=== PATIENT | male | born 1970 | race African-American/Black ===

== ENCOUNTER 2016-08-31 20:04 | Emergency (ER) ==
[2016-08-31 20:19] VITALS: BP 155/94
== END 2016-08-31 21:57 | disposition left against medical advice (07) ==
LOC: ER 20:04
DX: Z53.21 Procedure and treatment not carried out due to patient leaving prior to being seen by health care provider (principal)

== ENCOUNTER 2016-09-06 18:41 | Emergency (ER) | payer SELFPAY ==
--- NOTE | 2016-09-06 19:13 | ER Document Report ---
ED Medical Screen (RME) - General Chief Complaint: Overdose Stated Complaint: POSSIBLE OVERDOSE Time Seen by Provider: 09/06/16 19:11 Mode of Arrival: Ambulatory Information source: Patient Notes: Is a 46-year-old male with a history of schizophrenia who presents to the emergency room with depression, he states he took his 's Adderall (7 pills) 16 hours ago. The patient states she started getting left upper extremity numbness 3-4 hours ago and then started having chest pain 2-3 hours ago. He states he is suicidal. Past Medical History Renal/ Medical History: Denies: Hx Peritoneal Dialysis Physical Exam - Vital signs Vitals: Temp Pulse Resp BP Pulse Ox 98.1 F 128 H 15 171/97 H 100 09/06/16 18:45 09/06/16 18:45 09/06/16 18:45 09/06/16 18:45 09/06/16 18:45 Course - Vital Signs Vital signs: Temp Pulse Resp BP Pulse Ox 98.1 F 128 H 15 171/97 H 100 09/06/16 18:45 09/06/16 18:45 09/06/16 18:45 09/06/16 18:45 09/06/16 18:45
[2016-09-06 19:49] LABS: ABSOLUTE BASOPHILS # (AUTO) 0.1 10^3/uL (0.0-0.2); ABSOLUTE EOSINOPHILS # (AUTO) 0.1 10^3/uL (0.0-0.6); ABSOLUTE LYMPHOCYTES (AUTO) 2.5 10^3/uL (0.5-4.7); ABSOLUTE MONOCYTES (AUTO) 0.7 10^3/uL (0.1-1.4); BASOPHILS % (AUTO) 0.7 % (0-2); EOSINOPHILS % (AUTO) 0.8 % (0-6); HEMATOCRIT 42.3 % (37.9-51.0); HEMOGLOBIN 14.4 g/dL (13.5-17.0); HGB HCT DIFFERENCE 0.9; LYMPHOCYTES % (AUTO) 23.9 % (13-45); MEAN CORPUSCULAR HEMOGLOBIN 31.5 pg (27.0-33.4); MEAN CORPUSCULAR VOLUME 93 fl (80-97); MONOCYTES % (AUTO) 6.9 % (3-13); RED BLOOD COUNT 4.57 10^6/uL (4.35-5.55); RED CELL DISTRIBUTION WIDTH 13.4 % (11.5-14.0); SEGMENTED NEUTROPHILS % (AUTO) 67.7 % (42-78); WHITE BLOOD COUNT 10.4 10^3/uL (4.0-10.5)
--- NOTE | 2016-09-06 19:56 | ER Document Report ---
ED Psych Disorder / Suicide - General Mode of Arrival: Ambulatory Information source: Patient - HPI Patient complains to provider of: Overdose, Suicidal ideation Onset: Other - Refer to HPI notes <ISACCEBONY - Last Filed: 09/06/16 21:16> <WALKER GARCIA - Last Filed: 09/06/16 23:42> - General Chief Complaint: Overdose Stated Complaint: POSSIBLE OVERDOSE Time Seen by Provider: 09/06/16 19:11 Notes: Patient is a 46-year-old male with a history of schizophrenia who presents to the emergency room with depression and possible overdose. Patient states he took his 's Adderall (7 pills) 16 hours ago so that he could "feel better." Patient states he took 3 extended release and 4 immediately release Adderall. Patient states he started getting some left upper extremity numbness about 3-4 hours prior to arrival as well as chest pain onset 2-3 hours prior to arrival. Patient describes his pain as "tight" and states his pain radiates from his left shoulder and down into his fingertips. Patient also has some shortness of breath. Patient states he is suicidal, anxious, and depressed. Patient states he has been having marital problems and work stress. Patient states during triage "If I would have had my shotgun at home I would have taken it and blown my brains out." Patient also states "I feel so angry inside. I didn't want to admit it but I do feel suicidal, I feel like the garcia are closing in inside me. " Patient moved here from [place] 2 years ago and states he got a DUI when he got here and was in [facility] x[facility] weeks. Patient recently got out of the [facility]. Patient smokes marijuana, drinks beer and liquor but states he has been "easing off the liquor." Patient drinks 3-4 times a week and his last drink was about 4 days ago; patient denies any current withdrawal symptoms or any history of EtOH withdrawals. Patient has a history of PTSD, manic depression, and schizophrenia. Patient has not had any medications for about 4 years. Patient states he has been hearing voices telling him to hurt himself. Patient states he doesn't want to be held in this facility for 72 hours because he has to go to work. Patient was seen here a few days ago for an anxiety attack, which he states he gets frequently; patient left after getting an EKG. Patient states he does have some mild chest tightness which he relates to his anxiety. PCP-none (EBONY DEXTER) Past Medical History - General Information source: Patient - Social History Smoking Status: Current Every Day Smoker Chew tobacco use (# tins/day): No Frequency of alcohol use: Heavy Drug Abuse: Marijuana Family History: None Patient has suicidal ideation: Yes Patient has homicidal ideation: No Psychiatric Medical History: Reports: Hx Depression - manic, Hx Post Traumatic Stress Disorder, Hx Schizophrenia <EBONY DEXTER - Last Filed: 09/06/16 21:16> Review of Systems - Review of Systems Constitutional: No symptoms reported EENT: No symptoms reported Cardiovascular: No symptoms reported Respiratory: No symptoms reported Gastrointestinal: No symptoms reported Genitourinary: No symptoms reported Male Genitourinary: No symptoms reported Musculoskeletal: No symptoms reported Skin: No symptoms reported Hematologic/Lymphatic: No symptoms reported Neurological/Psychological: See HPI, Depression, Suicidal ideation, Other - overdose -: Yes All other systems reviewed and negative <EBONY DEXTER - Last Filed: 09/06/16 21:16> Physical Exam - Vital signs Interpretation: Hypertensive, Tachycardic <EBONY DEXTER - Last Filed: 09/06/16 21:16> <WALKER GARCIA - Last Filed: 09/06/16 23:42> - Vital signs Vitals: Temp Pulse Resp BP Pulse Ox 98.1 F 128 H 15 171/97 H 100 09/06/16 18:45 09/06/16 18:45 09/06/16 18:45 09/06/16 18:45 09/06/16 18:45 - Notes Notes: GENERAL: Alert, interacts well. No acute distress. HEAD: Normocephalic, atraumatic. EYES: Appear normal. Pupils equal, round, and reactive to light. ENT: Moist mucus membranes, tongue midline. NECK: Full range of motion. Supple. Trachea midline. LUNGS: Clear to auscultation bilaterally, no wheezes, rales, or rhonchi. No respiratory distress. HEART: Regular rate and rhythm. No murmurs, gallops, or rubs. ABDOMEN: Soft, non-tender. Non-distended. Normal bowel sounds. EXTREMITIES: Moves all 4 extremities spontaneously. Normal strength. No edema. NEUROLOGICAL: Alert and oriented x3. Normal speech. No focal neurological deficits. GSC 15. PSYCH: Tearful, depressed. SKIN: Warm, dry, normal turgor. No rashes or lesions noted. (EBONY DEXTER) Course - Laboratory Result Diagrams: 09/06/16 19:30 09/06/16 19:30 <EBONY DEXTER - Last Filed: 09/06/16 21:16> - Laboratory Result Diagrams: 09/06/16 19:30 09/06/16 19:30 <WALKER GARCIA - Last Filed: 09/06/16 23:42> - Re-evaluation Re-evalutation: 09/06/16 20:40 Patient presents emergency department with a chief complaint of major depression suicidal ideation and took too much Adderall. Patient initially complains of some discomfort in the chest which he relates to anxiety. Says that he was here in the ER 2 days ago for anxiety causing some chest discomfort and left after they did an EKG. Says occasionally his arm goes numb as well. Describes this following one hour after taking 7 time-released Adderall tablets that belonged to his . He says he has a history of depression PTSD schizophrenia bipolar disorder but has not taken medicines in 4 years admits to doing this as a suicidal attempt hearing voices and wanting to harm himself. States he drinks alcohol about 3-4 times a week but has not had a drink in 2 days. Denies any withdrawal type symptoms history of alcohol withdrawal or seizures. Denies any other illicit substance abuse other than marijuana. On examination. Patient is very tearful GCS of 15 slightly tachycardic on examination which is expected with the amphetamines. EKG is stable. Acute laboratory evaluation shows a mildly elevated CK and CK-MB IV fluids were given for this. Tox screen positive for amphetamines and marijuana with a negative troponin. At this time patient is given IV fluids placed on IVC. And will be kept for further assessment evaluation from the psychiatric team in the a.m. patient vehemently denies any chest pain or shortness of breath currently and is scheduled to have a repeat troponin. 09/06/16 20:43 (WALKER GARCIA) - Vital Signs Vital signs: Temp Pulse Resp BP Pulse Ox 98.1 F 128 H 22 H 128/82 H 99 09/06/16 18:45 09/06/16 18:45 09/06/16 22:00 09/06/16 20:03 09/06/16 22:00 - Laboratory Laboratory results interpreted by me: 09/06/16 09/06/16 09/06/16 19:30 19:30 19:30 Creatine Kinase 1281 H CK-MB (CK-2) 8.47 H Urine Ketones 20 H Acetaminophen < 10 L - EKG Interpretation by Me Additional EKG results interpreted by me: 09/06/16 20:42 EKG interpreted by myself to reveal sinus rhythm at [address] segment elevation or depression (WALKER GARCIA) Critical Care Note - Critical Care Note Total time excluding time spent on procedures (mins): 65 <WALKER GARCIA - Last Filed: 09/06/16 23:42> Discharge <EBONY DEXTER - Last Filed: 09/06/16 21:16> <WALKER GARCIA - Last Filed: 09/06/16 23:42> - Discharge Clinical Impression: Suicidal ideation, History of schizophrenia, Elevated CK Amphetamine overdose Qualifiers: Encounter type: initial encounter Injury intent: intentional self-harm Qualified Code(s): T43.622A - Poisoning by amphetamines, intentional self-harm, initial encounter Condition: Stable Disposition: PSYCH HOSP/UNIT Scribe Attestation: 09/06/16 20:40 I personally performed the services described in the documentation reviewed the documentation recorded by my scribe in my presence and it accurately and completely records my words and actions (WALKER GARCIA) Scribe Documentation - Scribe Written by Nia:: Nia Zarco, 09/06/16 20:04 acting as scribe for :: Avinash <EBONY DEXTER - Last Filed: 09/06/16 21:16>
[2016-09-06 19:59] LABS: APPEARANCE,URINE CLEAR; BILIRUBIN,URINE NEGATIVE (NEGATIVE); GLUCOSE, URINE NEGATIVE (NEGATIVE); KETONES,URINE 20 mg/dL (NEGATIVE); LEUKOCYTE ESTERASE,URINE NEGATIVE (NEGATIVE); NITRITE,URINE NEGATIVE (NEGATIVE); PROTEIN,URINE NEGATIVE (NEGATIVE); URINE SPECIFIC GRAVITY 1.013; UROBILINOGEN,URINE NEGATIVE mg/dL (<2.0)
--- NOTE | 2016-09-06 20:02 | RADIOLOGY REPORT (SQ) ---
EXAM DESCRIPTION: CT HEAD WITHOUT COMPLETED DATE/TIME: 09/06/2016 7:48 pm REASON FOR STUDY: LUE numbness COMPARISON: None. TECHNIQUE: Axial images acquired through the brain without intravenous contrast. Images reviewed wi th bone, brain and subdural windows. Images stored on PACS. All CT scanners at this facility use dose modulation, iterative reconstruction, and/or weight based d osing when appropriate to reduce radiation dose to as low as reasonably achievable (ALARA). [facility]: Dose Right [facility]: CareDose [facility]: Dose Right [facility]: Teradose 4D [facility]: Smart Technologies RADIATION DOSE: Up-to-date CT equipment and radiation dose reduction techniques were employed. CTDIv ol: 64.6 mGy. DLP: 1292 mGy-cm. mGy. LIMITATIONS: None. FINDINGS: VENTRICLES: Normal size and contour. CEREBRUM: No masses. No hemorrhage. No midline shift. Normal decker/white matter differentiation. N o evidence for acute infarction. CEREBELLUM: No masses. No hemorrhage. No alteration of density. No evidence for acute infarction. EXTRAAXIAL SPACES: No fluid collections. No masses. ORBITS AND GLOBE: No intra- or extraconal masses. Normal contour of globe without masses. CALVARIUM: No fracture. PARANASAL SINUSES: No fluid or mucosal thickening. SOFT TISSUES: No mass or hematoma. OTHER: No other significant finding. IMPRESSION: NORMAL BRAIN CT WITHOUT CONTRAST. TECHNICAL DOCUMENTATION: JOB ID: [id number] Quality ID # [id number]: Final reports with documentation of one or more dose reduction techniques (e.g., Au tomated exposure control, adjustment of the mA and/or kV according to patient size, use of iterative reconstruction technique) 2010 [employer]- All Rights Reserved
[2016-09-06 20:07] LABS: ALANINE AMINOTRANSFERASE 46 U/L (21-72); ALBUMIN 4.7 g/dL (3.5-5.0); ALKALINE PHOSPHATASE 89 U/L (38-126); ANION GAP 15 (5-19); ASPARTATE AMINO TRANSFERASE 59 U/L (17-59); BILIRUBIN,DIRECT 0.3 mg/dL (0.0-0.4); BILIRUBIN,TOTAL 0.5 mg/dL (0.2-1.3); BLOOD UREA NITROGEN 15 mg/dL (7-20); CALCIUM 9.7 mg/dL (8.4-10.2); CARBON DIOXIDE 25 mmol/L (22-30); CHLORIDE 102 mmol/L (98-107); CREATINE KINASE 1281 U/L (55-170); CREATININE RESULT 0.91 mg/dL (0.52-1.25); GLUCOSE 88 mg/dL (75-110); POTASSIUM 3.8 mmol/L (3.6-5.0); SODIUM 141.7 mmol/L (137-145); TOTAL PROTEIN 8.2 g/dL (6.3-8.2)
[2016-09-06 20:09] LABS: URINE BARBITURATES SCREEN NEGATIVE; URINE METHADONE SCREEN NEGATIVE; URINE OPIATES LOW NEGATIVE; URINE PHENCYCLIDINE SCREEN NEGATIVE
[2016-09-06 20:14] LABS: ALCOHOL < 10 mg/dL (NONE DETECTED)
[2016-09-06 20:23] LABS: CREATINE KINASE MB 8.47 ng/mL (<4.55)
[2016-09-06 20:25] LABS: TROPONIN I < 0.012 ng/mL
[2016-09-06] MEDS ORDERED: NORMAL SALINE 1000 ML 2,000 ML IV ONE (20:38)
--- NOTE | 2016-09-07 09:46 | ER Document Report ---
Doctor's Note Notes: 09/07/16 09:44 I have evaluated this pt. this am and he has no c/o at this time. He feels all of his needs are being met and his physical exam is normal. He is awaiting dispositon per mental health
--- NOTE | 2016-09-07 13:59 | EKG REPORT ---
SEVERITY:- NORMAL ECG - SINUS RHYTHM : Confirmed by: Kavita Covington MD 07-Sep-2016 13:58:38
--- NOTE | 2016-09-07 14:24 | ER Document Report ---
ED Psych Disorder / Suicide - General Chief Complaint: Overdose Stated Complaint: POSSIBLE OVERDOSE Time Seen by Provider: 09/06/16 19:11 Mode of Arrival: Ambulatory Information source: Patient, Relative - HPI Patient complains to provider of: Overdose - misuse of 's adderall, Suicidal ideation Onset: Just prior to arrival Onset was: Sudden Suicide Risk Factors: Depressed, Frightened friends/family, Male, Schizophrenia - pt reports being diagnosed with schizoprhenia Situational problems related to: Legal problems Normal mood: No Associated symptoms: Angry, Irritable, Restlessness Similar symptoms previously: Yes Recently seen / treated by doctor: No Notes: Patient is a 46 year old male who presented yesterday evening with c/o chest pains after taking excessive amounts his 's prescribed Adderall. Patient disclosed SI, although reportedly did not intend to overdose, but instead stated he was trying to feel better. Patient additionally disclosed he has been diagnosed with Schizophrenia in the past, but is not taking any medications. Patient this morning states he is tired of being house . Patient presents with accelerated mood, speech and affect and speaks about his 's poor choices with money, moving from [place], halfway episodes and legal probs, tattooing, etc. Patient states he was diagnosed with Schizophrenia when he was younger and states he gets paranoid and thinks people are laughing at him or talking about him, telling him to hurt himself or others. Patient states he has been in halfway recently for child support violations. Patient states he and his moved to [place] from [place], where she was stationed and various members of his family still reside. Patient jumped from topic to topic. Patient did provide verbal consent to speak with his . Patient acknowledged that he has experienced SI on and off for multiple months. , Amelie states she chilled with him at work the other night and then they all went to work. She states he had 2 cups of coffee, and when they went home she decided to take her Adderall and stay up while everyone was sleeping and clean the house. She states he seemed way too awake for 2 cups of coffee, and during intercourse he "couldn't get it up." She states later yesterday, he was acting a little strange, started not feeling well, and finally disclosed that he took her medication. She states they stopped to purchase Aspirin, and then she brought him here. Discussed with that the gun is recommended to be removed prior to patient's discharge. states she met patient's friend at the tattoo shop and the gun has been removed. Patient is A&O. Mood is irritable and anxious with congruent affect. Patient endorses SI and states he would shoot himself with his 12 mm. Patient denies HI. Patient denies A/V H; delusions not noted. Thought processes were circumferential. Conversational speech was labile and pressured. Intellectual abilities were estimated within average range. Attention and focus were poor. Insight, judgment, and impulse control were poor. Unspecified Schizophrenia or Other Psychosis, per history R/O Polysubstance Abuse Patient is psychiatrically cleared for discharge. Patient is recommended for rescind IVC and to follow up with A to evaluate needs for services. Collateral and patient adamant that this episode was precipitated by misuse of prescription amphetamines. Patient denies wanting to by suicide. reports she has had the weapon removed. Per [place] with [employer] with [employer] , there has to be an order to remove the weapon. Patient and are in agreement with plan of care to follow up as a walk in at [facility]. I consulted with Dr. Lazaro in regards to the care and management of this patient. - Related Data Allergies/Adverse Reactions: No Known Allergies Allergy (Verified 09/07/16 08:58) Past Medical History - General Information source: Patient, Relative, [facility] Records - Social History Smoking Status: Current Every Day Smoker Cigarette use (# per day): Yes Chew tobacco use (# tins/day): No Smoking Education Provided: Yes Frequency of alcohol use: Heavy Drug Abuse: Marijuana Family History: None Patient has suicidal ideation: No Patient has homicidal ideation: No Renal/ Medical History: Denies: Hx Peritoneal Dialysis Psychiatric Medical History: Reports: Hx Depression - manic, Hx Post Traumatic Stress Disorder, Hx Schizophrenia Physical Exam - Vital signs Vitals: Temp Pulse Resp BP Pulse Ox 98.1 F 128 H 15 171/97 H 100 09/06/16 18:45 09/06/16 18:45 09/06/16 18:45 09/06/16 18:45 09/06/16 18:45 Course - Vital Signs Vital signs: Temp Pulse Resp BP Pulse Ox 97.6 F 83 12 107/67 99 09/07/16 08:35 09/07/16 08:35 09/07/16 08:35 09/07/16 08:35 09/07/16 08:35 - Laboratory Result Diagrams: 09/06/16 19:30 09/06/16 19:30 Laboratory results interpreted by me: 09/06/16 09/06/16 09/06/16 19:30 19:30 19:30 Creatine Kinase 1281 H CK-MB (CK-2) 8.47 H Urine Ketones 20 H Acetaminophen < 10 L Discharge - Discharge Clinical Impression: Suicidal ideation, History of schizophrenia, Elevated CK Amphetamine overdose Qualifiers: Encounter type: initial encounter Injury intent: intentional self-harm Qualified Code(s): T43.622A - Poisoning by amphetamines, intentional self-harm, initial encounter Condition: Stable Disposition: HOME, SELF-CARE Additional Instructions: Overdose You have taken more medication than you should have. After your evaluation and care, it is felt that your overdose is not likely to be harmful or of any significant consequences to you and you are being discharged. In the future, you should be careful not to take more medications than what is prescribed for you. Although your overdose does not seem to be of any danger to you at this time, if you develop any unusual or unexpected symptoms after your discharge, you should return to the Emergency Department immediately for re-evaluation. Schizophrenia Schizophrenia is a chemical disorder that affects how the brain functions. The exact cause is unknown, but it tends to run in families. It is NOT caused by emotional trauma. Schizophrenia causes disordered thinking, including unusual beliefs and inability to "process" happenings around the patient. Patients with schizophrenia benefit greatly from medicine. These medicines are called antipsychotics. Never stop the medicine without the doctor 's approval. Counselling may help the patient deal with his disease. Schizophrenics require a very ordered environment. Stresses and sudden changes may bring out symptoms. Drugs and alcohol abuse may become problems. Contact the counsellor or crisis line if there are thoughts of suicide or of harming others, or if you become aware of unusual thoughts or beliefs. Please stop abusing drugs. Please engage in outpatient mental health services at [facility] as a walk in new patient. You have been provided a list of resources to assist you, to include mobile crisis. Please return if your symptoms worsen. Referrals: [facility] [Provider Group] - Follow up tomorrow Nia Attestation: 09/06/16 20:40 I personally performed the services described in the documentation reviewed the documentation recorded by my scribe in my presence and it accurately and completely records my words and actions
[2016-09-07 16:53] VITALS: BP 115/78
== END 2016-09-07 16:55 ==
LOC: ER 18:41
DX: R45.851 Suicidal ideations (principal); T43.622A Poisoning by amphetamines, intentional self-harm, initial encounter; Y92.009 Unspecified place in unspecified non-institutional (private) residence as the place of occurrence of the external cause; R20.0 Anesthesia of skin; F20.9 Schizophrenia, unspecified; F17.200 Nicotine dependence, unspecified, uncomplicated; F43.10 Post-traumatic stress disorder, unspecified; F41.9 Anxiety disorder, unspecified
CPT/HCPCS: 93005; 99291; 96360; 36415; 82553; 80307 ×4; 82550; 85025; 80053; 81001; 84484; 70450; 93010; J7030

== ENCOUNTER 2017-07-19 14:27 | Emergency (ER) | payer MEDICAID ==
[2017-07-19 14:41] VITALS: BP 122/86
[2017-07-19] MEDS ORDERED: ASPIRIN 81 MG TABLET, CHEWABLE PO ONE (15:45)
[2017-07-19] MEDS ORDERED: NITROGLYCERIN 0.4 MG/TAB 25 TAB/BOTTLE SL PRN (15:45)
--- NOTE | 2017-07-19 15:46 | ER Document Report ---
ED Medical Screen (RME) - General Chief Complaint: Chest Pain Stated Complaint: CHEST PAIN Time Seen by Provider: 07/19/17 15:34 TRAVEL OUTSIDE OF THE [place] IN LAST 30 DAYS: No - HPI Patient complains to provider of: Chest pain Notes: 07/19/17 15:46 Squeezing/crushing/cramping chest pain 8/10 started 3 days ago is causing him to come profoundly short of breath. Is worse with exertion. Prior to the patient is a long road trip to [facility]. Patient is an every day smoker. Takes no daily medications. Does not know his mother or father's health history or any contact with them does not know if they are alive or . Denies fever chills or trauma. Denies nausea or vomiting. 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 - Related Data Allergies/Adverse Reactions: No Known Allergies Allergy (Verified 07/19/17 14:28) Past Medical History - Social History Chew tobacco use (# tins/day): No Frequency of alcohol use: Social Drug Abuse: Marijuana Renal/ Medical History: Denies: Hx Peritoneal Dialysis Psychiatric Medical History: Reports: Hx Depression - manic, Hx Post Traumatic Stress Disorder, Hx Schizophrenia Review of Systems - Review of Systems Notes: REVIEW OF SYSTEMS: CONSTITUTIONAL: -fevers, -chills EENT: -eye pain, -difficulty swallowing, -nasal congestion CARDIOVASCULAR: +chest pain, -syncope. RESPIRATORY: -cough, -SOB GASTROINTESTINAL: -abdominal pain, -nausea, -vomiting, -diarrhea GENITOURINARY: -dysuria, -hematuria MUSCULOSKELETAL: -back pain, -neck pain SKIN: -rash or skin lesions. HEMATOLOGIC: -easy bruising or bleeding. LYMPHATIC: -swollen, enlarged glands. NEUROLOGICAL: -altered mental status or loss of consciousness, -headache, - neurologic symptoms PSYCHIATRIC: -anxiety, -depression. ALL OTHER SYSTEMS REVIEWED AND NEGATIVE. Physical Exam - Vital signs Vitals: Temp Pulse Resp BP Pulse Ox 98.4 F 69 18 122/86 H 99 07/19/17 14:38 07/19/17 14:38 07/19/17 14:38 07/19/17 14:38 07/19/17 14:38 - Notes Notes: PHYSICAL EXAMINATION: GENERAL: Well-appearing, well-nourished and in no acute distress. HEAD: Atraumatic, normocephalic. EYES: Pupils equal round and reactive to light, extraocular movements intact, sclera anicteric, conjunctiva are normal. ENT: nares patent, oropharynx clear without exudates. Moist mucous membranes. NECK: Normal range of motion, supple without lymphadenopathy LUNGS: Breath sounds clear to auscultation bilaterally and equal. No wheezes rales or rhonchi. HEART: Regular rate and rhythm without murmurs ABDOMEN: Soft, nontender, normoactive bowel sounds. No guarding, no rebound. No masses appreciated. EXTREMITIES: Normal range of motion, no pitting or edema. No cyanosis. NEUROLOGICAL: Cranial nerves grossly intact. Normal speech, normal gait. Normal sensory and motor exams. PSYCH: Normal mood, normal affect. SKIN: Warm, Dry, normal turgor, no rashes or lesions noted. Course - Vital Signs Vital signs: Temp Pulse Resp BP Pulse Ox 98.4 F 69 18 122/86 H 99 07/19/17 14:38 07/19/17 14:38 07/19/17 14:38 07/19/17 14:38 07/19/17 14:38
[2017-07-19 16:08] LABS: ABSOLUTE BASOPHILS # (AUTO) 0.1 10^3/uL (0.0-0.2); ABSOLUTE EOSINOPHILS # (AUTO) 0.3 10^3/uL (0.0-0.6); ABSOLUTE LYMPHOCYTES (AUTO) 2.1 10^3/uL (0.5-4.7); ABSOLUTE MONOCYTES (AUTO) 0.7 10^3/uL (0.1-1.4); ABSOLUTE NEUT (AUTO) 7.7 10^3/uL (1.7-8.2); BASOPHILS % (AUTO) 0.6 % (0-2); EOSINOPHILS % (AUTO) 2.5 % (0-6); HEMATOCRIT 42.1 % (37.9-51.0); HEMOGLOBIN 14.2 g/dL (13.5-17.0); LYMPHOCYTES % (AUTO) 19.2 % (13-45); MEAN CORPUSCULAR HEMOGLOBIN 31.3 pg (27.0-33.4); MEAN CORPUSCULAR HGB CONC 33.7 g/dL (32.0-36.0); MEAN CORPUSCULAR VOLUME 93 fl (80-97); MONOCYTES % (AUTO) 6.1 % (3-13); PLATELET COUNT 147 10^3/uL (150-450); RED BLOOD COUNT 4.54 10^6/uL (4.35-5.55); RED CELL DISTRIBUTION WIDTH 14.1 % (11.5-14.0); SEGMENTED NEUTROPHILS % (AUTO) 71.6 % (42-78); TOTAL CELLS COUNTED % (AUTO) 100 %; WHITE BLOOD COUNT 10.8 10^3/uL (4.0-10.5)
[2017-07-19 16:30] LABS: ANION GAP 8 (5-19); BLOOD UREA NITROGEN 13 mg/dL (7-20); CARBON DIOXIDE 32 mmol/L (22-30); CHLORIDE 103 mmol/L (98-107); GLUCOSE 83 mg/dL (75-110); POTASSIUM 4.5 mmol/L (3.6-5.0); SODIUM 142.9 mmol/L (137-145)
--- NOTE | 2017-07-19 16:31 | RADIOLOGY REPORT (SQ) ---
EXAM DESCRIPTION: CHEST 2 VIEWS COMPLETED DATE/TIME: 07/19/2017 4:19 pm REASON FOR STUDY: chest pain COMPARISON: None. EXAM PARAMETERS: NUMBER OF VIEWS: two views TECHNIQUE: Digital Frontal and Lateral radiographic views of the chest acquired. RADIATION DOSE: NA LIMITATIONS: none FINDINGS: LUNGS AND PLEURA: No opacities, masses or pneumothorax. No pleural effusion. MEDIASTINUM AND HILAR STRUCTURES: No masses or contour abnormalities. HEART AND VASCULAR STRUCTURES: Heart normal size. No evidence for failure. BONES: No acute findings. HARDWARE: None in the chest. OTHER: No other significant finding. IMPRESSION: NO ACUTE RADIOGRAPHIC FINDING IN THE CHEST. TECHNICAL DOCUMENTATION: JOB ID: [id number] [employer]- All Rights Reserved Reading location - IP/workstation name: [email or web address]
--- NOTE | 2017-07-19 16:51 | ER Document Report ---
ED General - General Chief Complaint: Chest Pain Stated Complaint: CHEST PAIN Time Seen by Provider: 07/19/17 15:34 Mode of Arrival: Ambulatory Information source: Patient Notes: 47-year-old male no previous medical history concerning for blood clots presents with complaints of right-sided chest pain of 3 day duration associated with shortness of breath after driving long distance. Patient denies any fevers or chills denies any nausea vomiting TRAVEL OUTSIDE OF THE [place] IN LAST 30 DAYS: No - HPI Onset: Other - 3 day duration Onset/Duration: Persistent Quality of pain: Cramping Severity: Mild Pain Level: 1 Associated symptoms: Chest pain, Shortness of breath Exacerbated by: Deep breathing Relieved by: Denies Similar symptoms previously: No Recently seen / treated by doctor: No - Related Data Allergies/Adverse Reactions: No Known Allergies Allergy (Verified 07/19/17 14:28) Past Medical History - Social History Smoking Status: Current Every Day Smoker Cigarette use (# per day): Yes Chew tobacco use (# tins/day): No Smoking Education Provided: Yes - Patient counselled regarding cessation for 4 minutes Frequency of alcohol use: Social Drug Abuse: Marijuana Family History: None Patient has suicidal ideation: No Patient has homicidal ideation: No Renal/ Medical History: Denies: Hx Peritoneal Dialysis Psychiatric Medical History: Reports: Hx Depression - manic, Hx Post Traumatic Stress Disorder, Hx Schizophrenia Review of Systems - Review of Systems Notes: REVIEW OF SYSTEMS: CONSTITUTIONAL : Denies fever, chills, or sweats. Denies recent illness. EENT: Denies eye, ear, throat, or mouth pain or symptoms. Denies nasal or sinus congestion or discharge. Denies throat, tongue, or mouth swelling or difficulty swallowing. CARDIOVASCULAR: Admits to chest pain RESPIRATORY: Admits shortness of breath GASTROINTESTINAL: Denies abdominal pain or distention. Denies nausea, vomiting , or diarrhea. Denies blood in vomitus, stools, or per rectum. Denies black, tarry stools. Denies constipation. GENITOURINARY: Denies difficulty urinating, painful urination, burning, frequency, blood in urine, or discharge. MUSCULOSKELETAL: Denies back or neck pain or stiffness. Denies joint pain or swelling. SKIN: Denies rash, lesions or sores. HEMATOLOGIC : Denies easy bruising or bleeding. LYMPHATIC: Denies swollen, enlarged glands. NEUROLOGICAL: Denies confusion or altered mental status. Denies passing out or loss of consciousness. Denies dizziness or lightheadedness. Denies headache. Denies weakness or paralysis or loss of use of either side. Denies problems with gait or speech. Denies sensory loss, numbness, or tingling. Denies seizures. PSYCHIATRIC: Denies anxiety or stress. Denies depression, suicidal ideation, or homicidal ideation. ALL OTHER SYSTEMS REVIEWED AND NEGATIVE. Dictation was performed using [employer] voice recognition software PHYSICAL EXAMINATION: GENERAL: Well-appearing, well-nourished and in no acute distress. HEAD: Atraumatic, normocephalic. EYES: Pupils equal round and reactive to light, extraocular movements intact, sclera anicteric, conjunctiva are normal. ENT: Nares patent, oropharynx clear without exudates. Moist mucous membranes. NECK: Normal range of motion, supple without lymphadenopathy LUNGS: Breath sounds clear to auscultation bilaterally and equal. No wheezes rales or rhonchi. HEART: Regular rate and rhythm without murmurs ABDOMEN: Soft, nontender, nondistended abdomen. No guarding, no rebound. No masses appreciated. Musculoskeletal: Normal range of motion, no pitting or edema. No cyanosis. NEUROLOGICAL: Cranial nerves grossly intact. Normal speech, normal gait. Normal sensory, motor exams PSYCH: Normal mood, normal affect. SKIN: Warm, Dry, normal turgor, no rashes or lesions noted. Physical Exam - Vital signs Vitals: Temp Pulse Resp BP Pulse Ox 98.4 F 69 18 122/86 H 99 07/19/17 14:38 07/19/17 14:38 07/19/17 14:38 07/19/17 14:38 07/19/17 14:38 Course - Re-evaluation Re-evalutation: 07/19/17 16:50 Patient notes the pain is on the right chest wall, his d-dimer is negative however given the recent travel being unable to reproduce his pain I will perform a CTA of his chest 07/19/17 20:10 CTA chest was concerning for emphysema, patient has been given smoking cessation instructions Anti-inflammatories for his chest pain Albuterol inhaler for home After performing a Medical Screening Examination, I estimate there is LOW risk for ACUTE CORONARY SYNDROME, PULMONARY EMBOLI, RESPIRATORY FAILURE, SEPSIS OR MENINGITIS, thus I consider the discharge disposition reasonable. I have reevaluated this patient multiple times and no significant life threatening changes are noted. The patient and I have discussed the diagnosis and risks, and we agree with discharging home with close follow-up. We also discussed returning to the Emergency Department immediately if new or worsening symptoms occur. We have discussed the symptoms which are most concerning (e.g., changing or worsening pain, trouble swallowing or breathing, neck stiffness, fever) that necessitate immediate return. - Vital Signs Vital signs: Temp Pulse Resp BP Pulse Ox 98.4 F 69 18 122/86 H 99 07/19/17 14:38 07/19/17 14:38 07/19/17 14:38 07/19/17 14:38 07/19/17 14:38 - Laboratory Result Diagrams: 07/19/17 15:55 07/19/17 15:55 Laboratory results interpreted by me: 07/19/17 07/19/17 15:55 15:55 WBC 10.8 H RDW 14.1 H Plt Count 147 L Carbon Dioxide 32 H - Diagnostic Test Radiology reviewed: Image reviewed - CTA chest consistent with emphysema, Reports reviewed - EKG Interpretation by Me EKG shows normal: Sinus rhythm, [place], Intervals, QRS Complexes Discharge - Discharge Clinical Impression: Chest wall pain Emphysema lung Qualifiers: Emphysema type: other Qualified Code(s): J43.8 - Other emphysema Condition: Stable Disposition: HOME, SELF-CARE Instructions: Chest Wall Pain ([facility]), Chronic Obstructive Lung Disease ([facility]) Additional Instructions: Follow up with your physician tomorrow for further care or return to the ED IMMEDIATELY if symptoms worsen or new concerns occur. If you cannot afford to follow up with your primary care physician a list of low cost clinics have been provided at the end of your discharge papers as well.
--- NOTE | 2017-07-19 17:41 | RADIOLOGY REPORT (SQ) ---
EXAM DESCRIPTION: CTA CHEST COMPLETED DATE/TIME: 07/19/2017 5:21 pm REASON FOR STUDY: sob cough COMPARISON: Chest x-ray 07/19/2017 TECHNIQUE: CT scan of the chest performed using helical scanning technique with dynamic intravenous contrast injection. Images reviewed with lung, soft tissue and bone windows. Reconstructed coronal and sagittal MPR images reviewed. Additional 3 dimensional post-processing performed to develop Maximal Intensity Projection images (RI P). All images stored on PACS. All CT scanners at this facility use dose modulation, iterative reconstruction, and/or weight based d osing when appropriate to reduce radiation dose to as low as reasonably achievable (ALARA). [facility]: Dose Right [facility]: CareDose [facility]: Dose Right [facility]: Teradose 4D [facility]: Electrikus CONTRAST TYPE AND DOSE: contrast/concentration: Isovue 370.00 mg/ml; Total Contrast Delivered: 65.0 ml; Total Saline Delivered: 90.0 ml Contrast bolus optimized for the pulmonary arteries. Not diagnostic for the aorta. RENAL FUNCTION: BUN 13 creatinine 1 RADIATION DOSE: CT Rad equipment meets quality standard of care and radiation dose reduction techniq ues were employed. CTDIvol: 14.3 - 23.2 mGy. DLP: 549 mGy-cm. . LIMITATIONS: None. FINDINGS: LUNGS AND PLEURA: There are some small subpleural emphysematous blebs. No pulmonary winter s. No pleural effusion or pulmonary infiltrate. AORTA AND GREAT VESSELS: No aneurysm. Contrast bolus not optimized for the aorta. HEART: No pericardial effusion. No significant coronary artery calcifications. PULMONARY ARTERIES: No emboli visualized in the main pulmonary arteries or the segmental branches. HILAR AND MEDIASTINAL STRUCTURES: No identified masses or abnormal nodes. HARDWARE: None in the chest. UPPER ABDOMEN: No significant findings. Limited exam. THYROID AND OTHER SOFT TISSUES: No masses. No adenopathy. BONES: No acute or significant finding. 3D MIPS: Confirm above findings. OTHER: No other significant finding. IMPRESSION: 1. No evidence of pulmonary emboli. 2. Mild pulmonary emphysema. COMMENT: Quality ID # [id number]: Final reports with documentation of one or more dose reduction techniques (e.g., Automated exposure control, adjustment of the mA and/or kV according to patient size, use of iterative reconstruction technique) TECHNICAL DOCUMENTATION: JOB ID: [id number]- All Rights Reserved Reading location - IP/workstation name: [email or web address]
[2017-07-19] MEDS ORDERED: ALBUTEROL SULFATE HFA (90 MCG/PUFF) 8 GM MDI (1 MDI/ER DISP) IH PRN (17:47)
--- NOTE | 2017-07-19 20:00 | EKG REPORT ---
SEVERITY:- NORMAL ECG - SINUS RHYTHM : Confirmed by: Kavita Covington MD 19-Jul-2017 19:59:18
== END 2017-07-19 18:32 | disposition home or self-care (01) ==
LOC: ER 14:27
DX: J43.8 Other emphysema (principal); R07.9 Chest pain, unspecified; R06.02 Shortness of breath; F17.210 Nicotine dependence, cigarettes, uncomplicated
CPT/HCPCS: 93005; 99406; 99285; 36415; 85025; 80048; 84484; 85379; 71046; 71275; 93010; J3490 ×2

== ENCOUNTER 2017-07-29 14:21 | Emergency (ER) | payer MEDICAID ==
[2017-07-29] MEDS ORDERED: ASPIRIN 81 MG TABLET, CHEWABLE PO ONE (14:50)
--- NOTE | 2017-07-29 14:50 | ER Document Report ---
ED Medical Screen (RME) - General Chief Complaint: Chest Pain Stated Complaint: CHEST PAIN Time Seen by Provider: 07/29/17 14:36 Notes: RAPID MEDICAL EVALUATION DISCLOSURE I have seen this patient as part of a Rapid Medical Evaluation and, if applicable, placed any initially appropriate orders. The patient will be seen and fully evaluated, including a full history and physical exam, by a provider ( in Main ED or Fast Track) when a room becomes available. 47-year-old male here with complaints of chest pain shortness of breath diaphoresis ongoing for the past 7 hours. The symptoms are worse with exertion and breathing. He also thinks that it may also be exacerbated by "getting freaked out". He denies any coronary hypertension diabetes hyperlipidemia cocaine use history but has a history of anxiety and has not been taking anything for the anxiety. He denies any suicidal ideations for the past 1 month (however immediately breaks into tears and starts crying hysterically). He denies any HI or hallucinations. Of note, he was seen here 10 days ago for chest pain but states that today's symptoms are not the same as 10 days ago. Per chart review, his troponin and d-dimer was negative. EXAM CTAB RRR Crying hysterically TRAVEL OUTSIDE OF THE [place] IN LAST 30 DAYS: No - Related Data Allergies/Adverse Reactions: No Known Allergies Allergy (Verified 07/29/17 14:23) Past Medical History Renal/ Medical History: Denies: Hx Peritoneal Dialysis Psychiatric Medical History: Reports: Hx Depression - manic, Hx Post Traumatic Stress Disorder, Hx Schizophrenia Physical Exam - Vital signs Vitals: Temp Pulse Resp BP Pulse Ox 99.0 F 97 18 144/96 H 100 07/29/17 14:31 07/29/17 14:31 07/29/17 14:31 07/29/17 14:31 07/29/17 14:31 Course - Vital Signs Vital signs: Temp Pulse Resp BP Pulse Ox 99.0 F 97 18 144/96 H 100 07/29/17 14:31 07/29/17 14:31 07/29/17 14:31 07/29/17 14:31 07/29/17 14:31
[2017-07-29] MEDS ORDERED: HYDROXYZINE PAMOATE 50 MG CAPSULE PO ONE (14:51)
[2017-07-29 15:15] LABS: APPEARANCE,URINE SLIGHTLY-CLOUDY; BILIRUBIN,URINE NEGATIVE (NEGATIVE); COLOR,URINE YELLOW; GLUCOSE, URINE NEGATIVE (NEGATIVE); KETONES,URINE 20 mg/dL (NEGATIVE); LEUKOCYTE ESTERASE,URINE TRACE (NEGATIVE); NITRITE,URINE NEGATIVE (NEGATIVE); PROTEIN,URINE 30 mg/dL (NEGATIVE); URINE SPECIFIC GRAVITY 1.026
--- NOTE | 2017-07-29 15:30 | RADIOLOGY REPORT (SQ) ---
EXAM DESCRIPTION: CHEST 2 VIEWS COMPLETED DATE/TIME: 07/29/2017 3:12 pm REASON FOR STUDY: CP SOB COMPARISON: 07/19/2017 EXAM PARAMETERS: NUMBER OF VIEWS: two views TECHNIQUE: Digital Frontal and Lateral radiographic views of the chest acquired. RADIATION DOSE: NA LIMITATIONS: none FINDINGS: LUNGS AND PLEURA: No opacities, masses or pneumothorax. No pleural effusion. MEDIASTINUM AND HILAR STRUCTURES: No masses or contour abnormalities. HEART AND VASCULAR STRUCTURES: Heart normal size. No evidence for failure. BONES: No acute findings. HARDWARE: None in the chest. OTHER: No other significant finding. IMPRESSION: NO ACUTE RADIOGRAPHIC FINDING IN THE CHEST. TECHNICAL DOCUMENTATION: JOB ID: [id number] [employer] All Rights Reserved Reading location - IP/workstation name: [email or web address]
[2017-07-29 15:35] LABS: URINE AMPHETAMINES SCREEN UNCONFIRMED POSITIVE; URINE BARBITURATES SCREEN NEGATIVE; URINE BENZODIAZEPINES SCREEN NEGATIVE; URINE COCAINE SCREEN NEGATIVE; URINE MARIJUANA (THC) SCREEN UNCONFIRMED POSITIVE; URINE METHADONE SCREEN NEGATIVE; URINE PHENCYCLIDINE SCREEN NEGATIVE
[2017-07-29 16:05] LABS: ABSOLUTE BASOPHILS # (AUTO) 0.1 10^3/uL (0.0-0.2); ABSOLUTE EOSINOPHILS # (AUTO) 0.2 10^3/uL (0.0-0.6); ABSOLUTE LYMPHOCYTES (AUTO) 2.3 10^3/uL (0.5-4.7); ABSOLUTE MONOCYTES (AUTO) 0.9 10^3/uL (0.1-1.4); ABSOLUTE NEUT (AUTO) 4.9 10^3/uL (1.7-8.2); BASOPHILS % (AUTO) 0.9 % (0-2); EOSINOPHILS % (AUTO) 2.7 % (0-6); HEMATOCRIT 45.5 % (37.9-51.0); HEMOGLOBIN 15.8 g/dL (13.5-17.0); LYMPHOCYTES % (AUTO) 27.4 % (13-45); MEAN CORPUSCULAR HEMOGLOBIN 31.8 pg (27.0-33.4); MEAN CORPUSCULAR HGB CONC 34.6 g/dL (32.0-36.0); MEAN CORPUSCULAR VOLUME 92 fl (80-97); MONOCYTES % (AUTO) 10.2 % (3-13); PLATELET COUNT 165 10^3/uL (150-450); RED BLOOD COUNT 4.95 10^6/uL (4.35-5.55); RED CELL DISTRIBUTION WIDTH 14.5 % (11.5-14.0); SEGMENTED NEUTROPHILS % (AUTO) 58.8 % (42-78); TOTAL CELLS COUNTED % (AUTO) 100 %; WHITE BLOOD COUNT 8.4 10^3/uL (4.0-10.5)
--- NOTE | 2017-07-29 16:17 | ER Document Report ---
ED General - General Chief Complaint: Chest Pain Stated Complaint: CHEST PAIN Time Seen by Provider: 07/29/17 14:36 Mode of Arrival: Ambulatory Information source: Patient Notes: 47-year-old male presents with complaints of feeling anxious having midsternal chest pain. Patient notes that he has stopped smoking since I had last seen him , he is only had 6 cigarettes but feels very anxious because of it feels a nicotine patch is working, states that albuterol is helping his breathing he has been cranky noted some midsternal sharp pain. Patient denies any fevers or chills TRAVEL OUTSIDE OF THE [place] IN LAST 30 DAYS: No - HPI Onset: Last week Onset/Duration: Persistent Quality of pain: Sharp Severity: Mild Pain Level: 1 Associated symptoms: Chest pain, Other - Anxious Exacerbated by: Other - Smoking cessation Relieved by: Other - Nicotine patch Similar symptoms previously: Yes Recently seen / treated by doctor: Yes - Related Data Allergies/Adverse Reactions: No Known Allergies Allergy (Verified 07/29/17 14:23) Past Medical History - Social History Smoking Status: Current Every Day Smoker Cigarette use (# per day): Yes Chew tobacco use (# tins/day): No - 30 Smoking Education Provided: Yes - Patient counselled regarding cessation for 4 minutes Frequency of alcohol use: Social Drug Abuse: Marijuana Family History: None Patient has suicidal ideation: No Patient has homicidal ideation: No Renal/ Medical History: Denies: Hx Peritoneal Dialysis Psychiatric Medical History: Reports: Hx Depression - manic, Hx Post Traumatic Stress Disorder, Hx Schizophrenia Review of Systems - Review of Systems Notes: REVIEW OF SYSTEMS: CONSTITUTIONAL : Denies fever, chills, or sweats. Denies recent illness. EENT: Denies eye, ear, throat, or mouth pain or symptoms. Denies nasal or sinus congestion or discharge. Denies throat, tongue, or mouth swelling or difficulty swallowing. CARDIOVASCULAR: Admits to chest pain RESPIRATORY: Admits shortness of breath cough GASTROINTESTINAL: Denies abdominal pain or distention. Denies nausea, vomiting , or diarrhea. Denies blood in vomitus, stools, or per rectum. Denies black, tarry stools. Denies constipation. GENITOURINARY: Denies difficulty urinating, painful urination, burning, frequency, blood in urine, or discharge. MUSCULOSKELETAL: Denies back or neck pain or stiffness. Denies joint pain or swelling. SKIN: Denies rash, lesions or sores. HEMATOLOGIC : Denies easy bruising or bleeding. LYMPHATIC: Denies swollen, enlarged glands. NEUROLOGICAL: Denies confusion or altered mental status. Denies passing out or loss of consciousness. Denies dizziness or lightheadedness. Denies headache. Denies weakness or paralysis or loss of use of either side. Denies problems with gait or speech. Denies sensory loss, numbness, or tingling. Denies seizures. PSYCHIATRIC: Admits to anxiety ALL OTHER SYSTEMS REVIEWED AND NEGATIVE. Dictation was performed using [employer] recognition software PHYSICAL EXAMINATION: GENERAL: Well-appearing, well-nourished and in no acute distress. HEAD: Atraumatic, normocephalic. EYES: Pupils equal round and reactive to light, extraocular movements intact, sclera anicteric, conjunctiva are normal. ENT: Nares patent, oropharynx clear without exudates. Moist mucous membranes. NECK: Normal range of motion, supple without lymphadenopathy LUNGS: Breath sounds clear to auscultation bilaterally and equal. No wheezes rales or rhonchi. HEART: Regular rate and rhythm without murmurs ABDOMEN: Soft, nontender, nondistended abdomen. No guarding, no rebound. No masses appreciated. Musculoskeletal: Normal range of motion, no pitting or edema. No cyanosis. NEUROLOGICAL: Cranial nerves grossly intact. Normal speech, normal gait. Normal sensory, motor exams PSYCH: anxiety SKIN: Warm, Dry, normal turgor, no rashes or lesions noted. Physical Exam - Vital signs Vitals: Temp Pulse Resp BP Pulse Ox 99.0 F 97 18 144/96 H 100 07/29/17 14:31 07/29/17 14:31 07/29/17 14:31 07/29/17 14:31 07/29/17 14:31 Course - Re-evaluation Re-evalutation: 07/29/17 18:28 Patient's evaluation was quite benign, he looks well is in no distress, I do believe he is quite anxious secondary to withdrawal from nicotine, he overall looks well his workup was benign here patient states that he just needs more medication for his smoking cessation which I will provide him. We had a very long discussion regarding chest pain he denies any other concerns at this time After performing a Medical Screening Examination, I estimate there is LOW risk for RUPTURED ESOPHAGUS, PNEUMOTHORAX, PULMONARY EMBOLISM, ACUTE CORONARY SYNDROME, OR THORACIC AORTIC DISSECTION, thus I consider the discharge disposition reasonable. I have reevaluated this patient multiple times and no significant life threatening changes are noted. The patient and I have discussed the diagnosis and risks, and we agree with discharging home with close follow-up. We also discussed returning to the Emergency Department immediately if new or worsening symptoms occur. We have discussed the symptoms which are most concerning (e.g., bloody sputum, worsening pain or shortness of breath) that necessitate immediate return. - Vital Signs Vital signs: Temp Pulse Resp BP Pulse Ox 99.0 F 97 22 H 130/92 H 97 07/29/17 14:31 07/29/17 14:31 07/29/17 18:01 07/29/17 18:00 07/29/17 18:01 - Laboratory Result Diagrams: 07/29/17 15:50 07/29/17 16:41 Laboratory results interpreted by me: 07/29/17 07/29/17 07/29/17 14:50 15:50 16:41 RDW 14.5 H Urine Protein 30 H Urine Ketones 20 H Urine Urobilinogen 4.0 H Ur Leukocyte Esterase TRACE H Urine Ascorbic Acid 40 H Acetaminophen < 10 L - Diagnostic Test Radiology reviewed: Image reviewed - Chest x-ray notes no significant abnormality, Reports reviewed - EKG Interpretation by Me EKG shows normal: Sinus rhythm, [place], Intervals, QRS Complexes When compared to previous EKG there are: No significant change Discharge - Discharge Clinical Impression: Encounter for smoking cessation counseling Chest pain Qualifiers: Chest pain type: unspecified Qualified Code(s): R07.9 - Chest pain, unspecified Condition: Stable Disposition: HOME, SELF-CARE Instructions: Chest Pain of Unclear Cause ([facility]) Additional Instructions: Follow up with your physician tomorrow for further care or return to the ED IMMEDIATELY if symptoms worsen or new concerns occur. If you cannot afford to follow up with your primary care physician a list of low cost clinics have been provided at the end of your discharge papers as well. Prescriptions: Nicotine [Nicotine Patch] 1 each TD DAILY #30 [id number]
[2017-07-29 17:08] LABS: ALANINE AMINOTRANSFERASE 49 U/L (21-72); ALBUMIN 4.8 g/dL (3.5-5.0); ALKALINE PHOSPHATASE 87 U/L (38-126); ANION GAP 12 (5-19); ASPARTATE AMINO TRANSFERASE 50 U/L (17-59); BILIRUBIN,DIRECT 0.2 mg/dL (0.0-0.4); BILIRUBIN,TOTAL 0.8 mg/dL (0.2-1.3); BLOOD UREA NITROGEN 16 mg/dL (7-20); CALCIUM 9.9 mg/dL (8.4-10.2); CARBON DIOXIDE 27 mmol/L (22-30); CHLORIDE 102 mmol/L (98-107); GLUCOSE 92 mg/dL (75-110); POTASSIUM 4.3 mmol/L (3.6-5.0); SODIUM 141.1 mmol/L (137-145)
[2017-07-29 17:19] LABS: ACETAMINOPHEN < 10 ug/mL (10-30); ALCOHOL < 10 mg/dL (NONE DETECTED)
[2017-07-29 18:19] VITALS: BP 130/92
[2017-07-29] MEDS ORDERED: ALBUTEROL SULFATE HFA (90 MCG/PUFF) 8 GM MDI (1 MDI/ER DISP) IH PRN (18:25)
--- NOTE | 2017-07-29 20:24 | EKG REPORT ---
SEVERITY:- NORMAL ECG - SINUS RHYTHM : Confirmed by: Sarthak Vernon MD 29-Jul-2017 20:23:54
== END 2017-07-29 18:41 | disposition home or self-care (01) ==
LOC: ER 14:21
DX: R07.9 Chest pain, unspecified (principal); F41.1 Generalized anxiety disorder; F17.210 Nicotine dependence, cigarettes, uncomplicated
CPT/HCPCS: 93005; 99406; 99285; 36415; 80307 ×4; 83735; 85025; 80053; 81001; 84484; 71046; 93010; J3490 ×2